=== PATIENT | female | born 1990 | race Caucasian/White ===

== ENCOUNTER 2017-03-24 08:09 | Emergency (ER) | payer OTHER ==
[~2017-03-24] VITALS: Ht 167.6 cm; Wt 104.3 kg
[2017-03-24] MEDS ORDERED: CLARITIN10 MG PO (08:24)
== END 2017-03-24 10:37 | disposition home or self-care (01) ==
LOC: ED 08:09
DX: R10.11 Right upper quadrant pain (principal); Z79.899 Other long term (current) drug therapy
CPT/HCPCS: 80053; 81001; 82150; 83690; 84703; 85025; 96361; 96374; 96375; 96376; 99283; J1885; J2405; J7030

== ENCOUNTER 2017-04-15 09:50 | Day surgery (SDC) | payer OTHER ==
[~2017-04-15] VITALS: Ht 167.6 cm; Wt 108.0 kg
[~2017-04-15 09:50] MED LIST: CLARITIN10 MG PO
--- NOTE | 2017-04-15 13:56 | NUR ---
04/15/17 1350 Reina Myers 1356 PATIENT UNRESPONSIVE TO PAIN OR VERBAL STIMULI. RESP EVEN AND UNLABORED. MASK AT 6 LITERS. ICE PACK TO ABD.
--- NOTE | 2017-04-15 16:04 | NUR ---
1440: PATIENT BACK IN DAY SURGERY ROOM FROM PACU. C/O PAIN 510. RECENTLY MEDICATED IN PACU. ABDOMINAL DRESSING SITES X 5. TWO DRESSINGS WITH SCANT AMOUNT OF RED DRAINAGE SEEN. SCDs ON. IV SITE WNL. CALL LIGHT WITHIN REACH. FAMILY AT BEDSIDE. 1455: PATIENT VOMITING. MEDICATED WITH IV PROMETHAZINE. PATIENT C/O PAIN. MEDICATED WITH IV DILAUDID. FAMILY AT BEDSIDE. CALL LIGHT WITHIN REACH. 1550: PATIENT SLEEPING. AWAKENED FOR VITAL SIGNS. C/O PAIN 12/13. DENIES NAUSEA. NO OTHER NEEDS AT THIS TIME. CALL LIGHT WITHIN REACH. FAMILY AT BEDSIDE.
[2017-04-15] MEDS ORDERED: NORCO 10-325 T1 EACH PO (17:06)
--- NOTE | 2017-04-15 17:30 | NUR ---
PATIENT ADMITTED FROM PACU TO ROOM 124 TO MEET CRITERIA. PATIENT C/O 6/10 PAIN UPON ARRIVAL TO THE FLOOR. PATIENT'S DRESSING TO ABDOMEN IS CDI. SHE IS AWAKE AND ALERT AND RESPONSIVE TO QUESTIONS. SHE HAS HER RAILS UP AND PARENTS AT HER BEDSIDE. PATIENT REMAINS ON RA AND VITALS ARE TAKEN AT THIS TIME.
--- NOTE | 2017-04-15 17:58 | NUR ---
PATIENT IS GIVEN SOME JELLO AND CRACKERS WITH PUDDING. SHE STATES THAT HER PAIN IS NOW AT A 2/10 AFTER RECEIVING HER PAIN MEDIATION. ASSESSMENT IS COMPLETE AND TEACHING DONE REGARDING POST OP CARE.
--- NOTE | 2017-04-15 18:11 | NUR ---
PT IS SITTING UP IN BED WORKING IN EATING SOME JELLO AND GRAHM CRACKERS. PT DID NOT NEED ANYTHING ELSE
--- NOTE | 2017-04-15 19:10 | NUR ---
TOLERATING CLEAR LIQUIDS WELL, SBA UP TO BATHROOM TO VOID 400ML YELLOW URINE, MOM AND DAD ARE PRESENT IN ROOM, PT STATES SHE WANTS TO GET DRESSED. MOM WILL HELP HER.
--- NOTE | 2017-04-15 19:30 | NUR ---
PT DRESSED AND STATES SHE WANTS TO GO HOME, REVIEWED DISCHARGE INSTRUCTIONS WITH PT AND HER FATHER. VERBALIZES UNDERSTANDING. DENIES QUESTIONS. IV DC'D AT THIS TIME. DISCHARGED TO HOME.
--- NOTE | 2017-04-16 11:54 | OR ---
[facility] [address] [place], [place] [address] Signed DATE OF SERVICE: 04/15/2017 PREOPERATIVE DIAGNOSIS: Cholelithiasis with cholecystitis. POSTOPERATIVE DIAGNOSIS: Cholelithiasis with cholecystitis. PROCEDURE PERFORMED: Laparoscopic cholecystectomy with intraoperative cholangiogram, prolonged and difficult (at 1 hour 25 minutes). ESTIMATED BLOOD LOSS: None. FINDINGS: Kenn had a chronically inflamed very thick-walled gallbladder, she had multiple stones inside the gallbladder, many of those were impacted in the neck of the gallbladder with chronic inflammation of the surrounding stru ctures including the triangle of Calot. It took an additional nurse to scrub and to hold retractors with the addition of the fan retractor to hold the bowel down and out of the way. It took extra time to dissect out the neck of the gallbladder and triangle of Calot in order to perform the intraoperative cholangiogram. The intraoperative cholangiogram was found to be unremarkable and then it took extra time to dissect the gallbladder off the liver edge itself because of an inflammatory changes. The entire s urgery took 1 hour and 25 minutes, that is well over 30 minutes longer than usual. Because of these factors, procedure was prolonged and difficult. INDICATIONS: Kenn is a 27-year-old female who is home this summer from college. She has had tremendous right upper quadrant abdominal pain and ended up in the emergency room. She was tender in the right upper quadrant and the white blood cell count was borderline. Liver function tests were pretty good with an AST just slightly up at 58 and her lipase was good at 33. She was discharged from the ER and followed up with her primary care provider. She continued to have symptoms. An ultrasound was ordered and she had multiple mobile stones within the gallbladder. There seemed to be 1 stone lodged in the neck of the gallbladder. The gallbladder was thickened at 6 mm. The common bile duct was unremarkable. Given those findings, she was asked to see me as a general surgeon. I met with Kenn and her mother in the office. I gave them a booklet on the gallbladder and we look e d at that together. They understand the location of function of the gallbladder. We discussed laparoscopic versus open cholecystectomy. They understand expected intraop and postop course. There is risk to surgery including, but not limited to bleeding, infection, scarring, change in contour of the skin, damage to bowel, damage to main bile duct, incisional hernias and other unforeseen comorbidities. They had expressed understanding and wished to proceed. Electronically Signed By: HALEY CASTRO MD 04/16/17 1154 PATIENT NAME: KENN HOBBS OPERATIVE REPORT DATE OF : 89 PHYSICIAN: HALEY CASTRO MD REPORT #: [id number] REPORT IS CONFIDENTIAL AND NOT TO BE RELEASED WITHOUT AUTHORIZATION [facility] [address] [place] [id number] Signed DESCRIPTION OF PROCEDURE: Kenn was taken into our operating room and placed in the supine position under general endotracheal tube anesthesia. She was given preoperative antibiotics along with subcutaneous heparin. SCDs were utilized. She was then prepped and draped in the usual sterile fashion. Our trocars were placed in usual positions under direct visualization of the camera without difficulty. The findings were as above. The gallbladder was grasped and elevated in the right upper quadrant. It was so tense we had to initially drain the gallbladder a bit a n d we found that the bile was actually clear of all pigmentation. We did have an extra nurse scrub in and we had introduced the fan retractor. It took time to take down the fat adherent to the gallbladder starting at the fundus all the way down through the neck. She had stones impacted in the neck of the gallbladder with chronic inflammatory changes and it took extra time to dissect very carefully through these areas until we had the cystic duct completely isolated. The cystic artery was also isolated and it was clipped and divided. We passed the intraoperative cholangiocatheter into the cystic duct without difficulty. The intraoperative cholangiogram was performed and found to be unremarkable. We secured the cystic duct stump with PDS endoloop and 2 clips we replaced on the cystic duct stump to boaz its location. The gallbladder was then carefully removed from the gallbladder fossa with the help of the cautery and placed into an EndoCatch bag. After this, the right upper quadrant was irrigated and suctioned o ut until clear. We then used our laparoscopic suturing device to pass 0 Vicryl suture on either side of the fascia of the subxiphoid trocar site as well as the mid epigastric trocar site. These were tied down to close these 2 trocar sites primarily. After this, the gas was allowed to escape and all the remaining trocars were removed along with the gallbladder. The gallbladder had been opened on the back table with our circulating nurse. Pictures have been taken for photodocumentation. We then closed the fascia of the supraumbilical trocar site with interrupted simple and [id number] 0 Vicryl suture. Local anesthetic was injected into all trocar sites. Each trocar site was then irrigated and suctioned out until clear. The skin and dermis of each trocar site was closed with interrupted 3-0 subcuticular Monocryl sutures. Dry gauze and tape was then applied to all incisions. Kenn was awakened from anesthesia, extubated in the OR and taken to recovery room in stable condition. MD KATE Melendez/Mehdi Electronically Signed By: HALEY CASTRO MD 04/16/17 1154 PATIENT NAME: KENN HOBBS OPERATIVE REPORT DATE OF : 89 PHYSICIAN: HALEY CASTRO MD REPORT #: [id number] REPORT IS CONFIDENTIAL AND NOT TO BE RELEASED WITHOUT AUTHORIZATION [address] [address] Signed /[id number] cc: MD Dr. Manolo Melendez Electronically Signed By: HALEY CASTRO MD 04/16/17 1154 PATIENT NAME: KENN HOBBS OPERATIVE REPORT DATE OF : 89 PHYSICIAN: HALEY CASTRO MD REPORT #: [id number] REPORT IS CONFIDENTIAL AND NOT TO BE RELEASED WITHOUT AUTHORIZATION
== END 2017-04-15 19:30 | disposition home or self-care (01) ==
LOC: DS 09:50 → MS 17:15 → DS 19:30
PROVIDERS: Colon & Rectal Surgery
PROC: BF13YZZ Fluoroscopy of Gallbladder and Bile Ducts using Other Contrast (ICD-10-PCS; 2017-04-15)
PROC: 0FT44ZZ Resection of Gallbladder, Percutaneous Endoscopic Approach (ICD-10-PCS; principal; 2017-04-15 12:15)
DX: K80.00 Calculus of gallbladder with acute cholecystitis without obstruction (principal); Z79.899 Other long term (current) drug therapy
CPT/HCPCS: 00790; 74300; J0690; J1644; J1885; J2405; J2550; J2704; J2710; J3010; J7120; Q9967